=== PATIENT | male | born 1960 | race Caucasian/White ===

== ENCOUNTER 2017-07-25 13:18 | Emergency (ER) | payer SELFPAY ==
[~2017-07-25] VITALS: Ht 168.9 cm; Wt 64.5 kg
[2017-07-25 13:22] VITALS: BP 159/88
[2017-07-25] MEDS ORDERED: SULFAMETH./TRIMETHOPRIM DS 800MG/160MG TABLET ONE (13:59)
[2017-07-25] MEDS ORDERED: PLEASE ENTER ALLERGIES MC SCH ×2 (14:00)
[2017-07-25] MEDS ORDERED: SULFAMETH./TRIMETHOPRIM DS 800MG/160MG TABLET PO ONE (14:00)
== END 2017-07-25 14:08 | disposition home or self-care (01) ==
LOC: ED 13:50
DX: L03.114 Cellulitis of left upper limb (principal); Z59.0 Homelessness; Z60.2 Problems related to living alone
CPT/HCPCS: 99283

== ENCOUNTER 2017-08-24 22:46 | Emergency (ER) | payer OTHER ==
[~2017-08-24] VITALS: Ht 170.2 cm; Wt 66.1 kg
[2017-08-24 22:54] VITALS: BP 114/84
[2017-08-24] MEDS ORDERED: LIDOCAINE 1%, 20ML ONE (23:26)
[2017-08-25] MEDS ORDERED: CEPHALEXIN 500 MG CAPSULE PO ONE (00:30)
[2017-08-25] MEDS ORDERED: HYDROcodone/APAP 5/325 TABLET PO ONE (00:30)
[2017-08-25] MEDS ORDERED: SULFAMETH./TRIMETHOPRIM DS 800MG/160MG TABLET PO ONE (00:30)
[2017-08-25] MEDS ORDERED: CEPHALEXIN 500 MG CAPSULE ONE (00:31)
[2017-08-25] MEDS ORDERED: HYDROcodone/APAP 5/325 TABLET ONE (00:31)
[2017-08-25] MEDS ORDERED: SULFAMETH./TRIMETHOPRIM DS 800MG/160MG TABLET ONE (00:31)
== END 2017-08-25 00:47 | disposition home or self-care (01) ==
LOC: ED 23:08
DX: L02.11 Cutaneous abscess of neck (principal)
CPT/HCPCS: 10060; 87070; 87077; 87186; 87205

== ENCOUNTER 2017-08-28 05:39 | Emergency (ER) | payer SELFPAY ==
[~2017-08-28] VITALS: Ht 170.2 cm; Wt 59.1 kg
[2017-08-28 05:41] VITALS: BP 147/95
[2017-08-28] MEDS ORDERED: IBUPROFEN 200 MG TABLET PO ONE (06:30)
[2017-08-28] MEDS ORDERED: CEPH-368 PO (06:57)
[2017-08-28] MEDS ORDERED: IBUPROFEN 200 MG TABLET ONE (07:03)
== END 2017-08-28 07:34 | disposition home or self-care (01) ==
LOC: ED 06:04
DX: S40.012A Contusion of left shoulder, initial encounter (principal); M19.012 Primary osteoarthritis, left shoulder; F17.210 Nicotine dependence, cigarettes, uncomplicated; Y04.2XXA Assault by strike against or bumped into by another person, initial encounter
CPT/HCPCS: 99284

== ENCOUNTER 2017-10-27 13:21 | Emergency (ER) | payer OTHER ==
[~2017-10-27] VITALS: Ht 168.9 cm; Wt 67.0 kg
[~2017-10-27 13:21] MED LIST: CEPH-368 PO
[2017-10-27 13:41] VITALS: BP 136/71
== END 2017-10-27 14:27 | disposition home or self-care (01) ==
LOC: ED 14:00
DX: S40.862A Insect bite (nonvenomous) of left upper arm, initial encounter (principal); S40.861A Insect bite (nonvenomous) of right upper arm, initial encounter; X58.XXXA Exposure to other specified factors, initial encounter; Y93.89 Activity, other specified; Y92.89 Other specified places as the place of occurrence of the external cause; Y99.8 Other external cause status
CPT/HCPCS: 99283

== ENCOUNTER 2017-10-29 19:26 | Emergency (ER) | payer OTHER ==
[~2017-10-29] VITALS: Ht 170.2 cm; Wt 69.9 kg
[2017-10-29 19:27] VITALS: BP 131/87
[2017-10-29] MEDS ORDERED: ACETAMINOPHEN 500 MG TABLET ONE (21:12)
[2017-10-29] MEDS ORDERED: ACETAMINOPHEN 500 MG TABLET PO ONE (21:30)
[2017-10-29] MEDS ORDERED: ACETAMINOPHEN 325 MG TABLET PO ONE (21:30)
[2017-11-02] MEDS ORDERED: IBUP-1222 PO (09:46)
[2017-11-02] MEDS ORDERED: AMOX1TAB64 PO (09:46)
== END 2017-10-29 21:17 | disposition home or self-care (01) ==
LOC: ED 20:42
DX: S60.221A Contusion of right hand, initial encounter (principal); G89.11 Acute pain due to trauma; Z59.0 Homelessness; X58.XXXA Exposure to other specified factors, initial encounter; Y93.89 Activity, other specified; Y92.59 Other trade areas as the place of occurrence of the external cause; Y99.8 Other external cause status
CPT/HCPCS: 29125; 99284

== ENCOUNTER 2018-08-14 06:53 | Emergency (ER) | payer MEDICAID ==
[~2018-08-14] VITALS: Ht 167.6 cm; Wt 66.7 kg
[~2018-08-14 06:53] MED LIST changes: +AMOX1TAB64 PO; +IBUP-1222 PO
[2018-08-14 06:55] VITALS: BP 136/88
[2018-08-14] MEDS ORDERED: IBUPROFEN 200 MG TABLET PO ONE (07:30)
[2018-08-14] MEDS ORDERED: IBUPROFEN 200 MG TABLET ONE (07:36)
== END 2018-08-14 08:53 | disposition home or self-care (01) ==
LOC: ED 08:15
DX: K13.0 Diseases of lips (principal); L03.811 Cellulitis of head [any part, except face]; L03.113 Cellulitis of right upper limb
CPT/HCPCS: 99283

== ENCOUNTER 2019-10-20 17:55 | Emergency (ER) | payer MEDICAID ==
[~2019-10-20] VITALS: Ht 170.2 cm; Wt 61.5 kg
--- NOTE | 2019-10-20 17:57 | NUR ---
COIL FORMER: NIL X 1
[2019-10-20 18:04] VITALS: BP 108/71
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
--- NOTE | 2019-10-20 19:02 | NUR ---
BEDSIDE REPORT RECEIVED FROM ARVIN TUTTLE. CARE ASSUMED.
[2019-10-20] MEDS ORDERED: IBUPROFEN 600 MG TABLET ONE (19:09)
--- NOTE | 2019-10-20 19:24 | NUR ---
MEDICAL STUDENT AT BEDSIDE.
--- NOTE | 2019-10-20 19:39 | NUR ---
PT STATES HE USUALLY TAKES KEFLEX AND BACTRIM FOR HIS WOUNDS AND STATES EVERYTHING HEALS "BETTER."
--- NOTE | 2019-10-20 19:58 | NUR ---
Patient/Caregiver given discharge instructions and they have confirmed that they understand the instructions. Patient ambulatory with steady gait.
== END 2019-10-20 20:05 | disposition home or self-care (01) ==
LOC: ED 19:19
DX: L03.012 Cellulitis of left finger (principal)
CPT/HCPCS: 99283

== ENCOUNTER 2020-03-25 20:29 | Emergency (ER) | payer MEDICAID ==
[~2020-03-25] VITALS: Ht 167.6 cm; Wt 63.3 kg
[2020-03-25 20:33] VITALS: BP 128/87
[2020-03-25] MEDS ORDERED: LIDOCAINE-MPF 1%, 5ML ONE (21:27)
[2020-03-25] MEDS ORDERED: LIDOCAINE-MPF 1%, 5ML INFIL ONE (21:30)
== END 2020-03-25 22:26 | disposition home or self-care (01) ==
LOC: ED 22:00
DX: L03.114 Cellulitis of left upper limb (principal); L03.113 Cellulitis of right upper limb; L01.01 Non-bullous impetigo; F10.10 Alcohol abuse, uncomplicated; F11.10 Opioid abuse, uncomplicated; F17.210 Nicotine dependence, cigarettes, uncomplicated; R51 Headache; Y90.0 Blood alcohol level of less than 20 mg/100 ml
CPT/HCPCS: 26010; 99283; 99406

== ENCOUNTER 2020-05-18 09:20 | Emergency (ER) | payer MEDICAID ==
[~2020-05-18] VITALS: Ht 172.7 cm; Wt 61.7 kg
[2020-05-18 09:23] VITALS: BP 110/80
== END 2020-05-18 09:39 | disposition home or self-care (01) ==
LOC: ED 09:36
DX: L02.511 Cutaneous abscess of right hand (principal); Z90.81 Acquired absence of spleen
CPT/HCPCS: 99283

== ENCOUNTER 2020-08-19 15:44 | Emergency (ER) | payer MEDICAID ==
[~2020-08-19] VITALS: Ht 170.2 cm; Wt 68.6 kg
[2020-08-19 16:23] VITALS: BP 126/77
--- NOTE | 2020-08-19 17:48 | NUR ---
PT DISCHARGED BY THIS RN FROM TRIAGE.
== END 2020-08-19 17:49 | disposition home or self-care (01) ==
LOC: ED 17:00
DX: L03.113 Cellulitis of right upper limb (principal); L03.114 Cellulitis of left upper limb
CPT/HCPCS: 99283

== ENCOUNTER 2021-01-04 03:25 | Emergency (ER) | payer MEDICAID ==
[~2021-01-04] VITALS: Ht 170.2 cm; Wt 63.3 kg
[2021-01-04] MEDS ORDERED: CLINDAMYCIN 300 MG CAPSULE ONE (03:50)
[2021-01-04] MEDS ORDERED: BUPIVACAINE 0.25% ONE (03:50)
[2021-01-04] MEDS ORDERED: HYDROcodone/APAP 5/325 TABLET ONE (03:51)
[2021-01-04] MEDS ORDERED: HYDROcodone/APAP 5/325 TABLET PO ONE (04:00)
[2021-01-04] MEDS ORDERED: BUPIVACAINE/PF 0.5% INFIL ONE (04:00)
[2021-01-04] MEDS ORDERED: CLINDAMYCIN 300 MG CAPSULE PO ONE (04:00)
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
--- NOTE | 2021-01-04 05:09 | NUR ---
Physician at bedside to perfrom I&D. Patient with difficulty following directions and remaining still during procedure. Attempts made to remind pt that holding still is important during procedure. Staff at bedside to assit patient in holding hand still. Pt would continually jerk hand away.
[2021-01-04 05:35] VITALS: BP 131/88
--- NOTE | 2021-01-04 05:36 | NUR ---
Patient/Caregiver given discharge instructions and they have confirmed that they understand the instructions. Patient ambulatory with steady gait. Dressing by Physician. Pt sent home with bandaids. Rx reviewed with patient and pt states understanding.
== END 2021-01-04 05:38 | disposition home or self-care (01) ==
LOC: ED 05:32
DX: S67.02XA Crushing injury of left thumb, initial encounter (principal); L03.012 Cellulitis of left finger; G89.11 Acute pain due to trauma; M79.642 Pain in left hand; F17.210 Nicotine dependence, cigarettes, uncomplicated; Z90.81 Acquired absence of spleen; W23.0XXA Caught, crushed, jammed, or pinched between moving objects, initial encounter; Y93.89 Activity, other specified; Y92.098 Other place in other non-institutional residence as the place of occurrence of the external cause; Y99.8 Other external cause status
CPT/HCPCS: 10060; 73140; 99283; 99406; S0020

== ENCOUNTER 2021-03-09 22:17 | Emergency (ER) | payer MEDICAID ==
[~2021-03-09] VITALS: Ht 170.2 cm; Wt 61.4 kg
[2021-03-09 22:30] VITALS: BP 123/83
[2021-03-09 23:20] LABS: MEAN CORPUSCULAR HEMOGLOBIN 31.1 pg (27.5-34.5); MEAN CORPUSCULAR HGB CONC 33.9 g/dL (33.2-36.2); PLATELET COUNT 317 x10^3/uL (130-400); RED BLOOD COUNT 4.92 x10^6/uL (4.38-5.82); RED CELL DISTRIBUTION WIDTH 13.1 % (9.4-14.8)
[2021-03-09 23:21] LABS: ALANINE AMINOTRANSFERASE 123 U/L (12-78); ALBUMIN 3.6 g/dL (3.4-5.0); ANION GAP 6 mmol/L (5-15); CALCIUM 8.6 mg/dL (8.5-10.1); CHLORIDE 104 mmol/L (98-107); CREATININE 0.83 mg/dL (0.7-1.3)
[2021-03-09 23:24] LABS: ALKALINE PHOSPHATASE 111 U/L (45-117); BILIRUBIN,TOTAL 0.8 mg/dL (0.2-1.0); TOTAL PROTEIN 7.7 g/dL (6.4-8.2)
[2021-03-09 23:37] LABS: BASOS#(MANUAL) 0.16 x10^3/uL (0-0.1); BASOS% (MANUAL) 2 % (0-1); EOS#(MANUAL) 0.33 x10^3/uL (0.0-0.4); EOS% (MANUAL) 4 % (1-7); LYMPH#(MANUAL) 4.18 x10^3/uL (1-3.4); LYMPHS% (MANUAL) 51 % (22-44); MD YES; MONOS#(MANUAL) 0.57 x10^3/uL (0.3-2.7); MONOS% (MANUAL) 7 % (2-9); SEG#(MANUAL) 2.95 x10^3/uL (1.8-6.8); SEGS% (MANUAL) 36 % (42-75); SMUDGE CELLS 1+
[2021-03-09 23:38] LABS: <PLATELET ESTIMATE> ADEQUATE; ANISOCYTOSIS 1+; MICROCYTOSIS 1+
[2021-03-09 23:39] LABS: <PLT MORPHOLOGY> NORMAL PLT MORPH
--- NOTE | 2021-03-10 00:32 | NUR ---
[facility] hooker in [facility] - 03/10/21 at 0033 by KEN PT TO ROOM FROM [facility]
--- NOTE | 2021-03-10 00:33 | NUR ---
PT LEFT WITH SPOUSE AND REFUSED TO SIGN AMA PAPERWORK
== END 2021-03-10 00:36 | disposition left against medical advice (07) ==
LOC: ED 03-10 00:15
DX: R31.9 Hematuria, unspecified (principal)
CPT/HCPCS: 36415; 80053; 85025; 99283